=== PATIENT | male | born 1960 | race African-American/Black ===

== ENCOUNTER 2018-10-14 09:56 | Day surgery (SDC) | payer OTHER ==
[~2018-10-14] VITALS: Ht 170.2 cm; Wt 101.6 kg
[~2018-10-14 09:56] MED LIST: HYDROmorphone 2 MG/ML VIAL IV PRN; IV RINGERS,LACTATED 1000ML 1,000 ML IV SCH; LIDOCAINE 1% PF 2 ML VIAL. ID PRN; MORPHINE SULFATE 4 MG/ML VIAL. IV PRN; ONDANSETRON PF 4 MG/2 ML VIAL. IV PRN; PROCHLORPERAZINE 10 MG/2 ML VIAL. IV PRN; ceFAZolin 2GM PREMIX 2 GM/50 ML BAG IV ONE; fentaNYL PF VIAL 100 MCG/2 ML VIAL IV PRN
[2018-10-14] MEDS ORDERED: LISI-130 PO (10:24)
[2018-10-14] MEDS ORDERED: METF500T16 PO (10:24)
[2018-10-14] MEDS ORDERED: ACET500T68 PO (10:24)
[2018-10-14] MEDS ORDERED: AMOX1TAB61 PO (10:24)
[2018-10-14] MEDS ORDERED: XOPENEX HFA15 GM IH (10:24)
[2018-10-14] MEDS ORDERED: GUAI600T47 PO (10:24)
[2018-10-14] MEDS ORDERED: DOCU-109 PO (10:24)
[2018-10-14] MEDS ORDERED: CHLO4TAB20 PO (10:24)
[2018-10-14] MEDS ORDERED: BUPIVAC MPF-EPI 0.5%-1:200000 30 ML VIAL. ONE (10:44)
--- NOTE | 2018-10-14 11:21 | PDOC1 ---
History and Physical Date of Admission Date of Admission DATE: 10/14/18 TIME: 11:16 Identification/Chief Complaint Chief Complaint right inguinal fullness and pain Source Source: Chart review, Patient History of Present Illness History of Present Illness Mr Goodman is a 57 yo male inmate who at age 19 had a left inguinal hernia repair. He now has pain and fullness in the right groin. He is brought for repair Past Medical History Cardiovascular: No pertinent hx Pulmonary: COPD Renal/: No pertinent hx Endocrine: Diabetes Past Surgical History Past Surgical History: Hernia Repair Family History Family History: No Significant Social History Smoke: No ALCOHOL: none Drugs: None Current Medications Current Medications Current Medications Ondansetron HCl (Zofran) 4 mg PRN Q6HRS PRN IV NAUSEA/VOMITING; Start at 07:00; Stop 10/15/18 at 06:59 Fentanyl Citrate (Fentanyl 2ml Vial) 25 mcg PRN Q5MIN PRN IV MILD PAIN; Start 10/14/18 at 07:00; Stop 10/15/18 at 06:59 Fentanyl Citrate (Fentanyl 2ml Vial) 50 mcg PRN Q5MIN PRN IV MODERATE TO SEVERE PAIN; Start 10/14/18 at 07:00; Stop 10/15/18 at 06:59 Morphine Sulfate (Morphine Sulfate) 1 mg PRN Q10MIN PRN IV SEVERE PAIN; Start 10/14/18 at 07:00; Stop 10/15/18 at 06:59 Ringer's Solution 1,000 ml @ 30 mls/hr Q24H IV Last administered on at 10:43; Start 10/14/18 at 07:00; Stop 10/14/18 at 18:59 Lidocaine HCl (Xylocaine-Mpf 1% 2ml Vial) 2 ml PRN 1X PRN ID PRIOR TO IV START ; Start 10/14/18 at 07:00; Stop 10/15/18 at 06:59 Hydromorphone HCl (Dilaudid) 0.5 mg PRN Q10MIN PRN IV SEV PAIN, Second choice; Start 10/14/18 at 07:00; Stop 10/15/18 at 06:59 Prochlorperazine Edisylate (Compazine) 5 mg PACU PRN PRN IV NAUSEA, MRX1; Start 10/14/18 at 07:00; Stop 10/15/18 at 06:59 Cefazolin Sodium/ Dextrose 50 ml @ 100 mls/hr 1X PREOP PRN IV PRIOR TO PROCEDURE; Start 10/14/18 at 06:00; Stop 10/14/18 at 18:00 Bupivacaine HCl/ Epinephrine Bitart (Sensorcain-Mpf Epi 0.5%-1:864376) 30 ml STK -MED ONCE .ROUTE ; Start 10/14/18 at 10:44; Stop 10/14/18 at 10:46; Status DC Active Scripts Active Reported Xopenex Hfa (Levalbuterol Tartrate) 15 Gm Hfa.aer.ad 45 Gm IH BID Metformin Hcl 500 Mg Tablet 500 Mg PO BIDWMEALS Lisinopril 40 Mg Tablet 1 Tab PO DAILY Mucinex (Guaifenesin) 600 Mg Tablet.er 400 Mg PO BID Colace (Docusate Sodium) 100 Mg Capsule 1 Cap PO BID Chlorpheniramine Maleate 4 Mg Tablet 4 Mg PO BID Augmentin 875-125 Tablet (Amoxicillin/Potassium Clav) 1 Each Tablet 1 Tab PO BID Acetaminophen 500 Mg Tablet 1 Tab PO BID Allergies Allergies: Coded Allergies: No Known Drug Allergies (Unverified , 10/14/18) ROS Review of System negative with exception of present complaint Physical Exam General: Alert, Cooperative, No acute distress HEENT: Atraumatic Lungs: Normal air movement Heart: RRR Abdomen: Soft, Other (obese, well healed scar left groin, fullness present in the right groin) Vitals Vitals Vital Signs Date Time Temp Pulse Resp B/P (MAP) Pulse Ox O2 Delivery O2 Flow Rate FiO2 10/14/18 10:32 97.9 97 20 157/107 94 Nasal Cannula 3 97.9 VTE Prophylaxis Ordered VTE Prophylaxis Devices: Yes VTE Pharmacological Prophylaxi: No Assessment/Plan Assessment/Plan right inguinal hernia explained risks of repair including but not limited to bleeding, infection, recurrence, chronic pain he will proceed GILMAR LINN MD Oct 14, 2018 11:20
[2018-10-14] MEDS ORDERED: fentaNYL PF VIAL 100 MCG/2 ML VIAL ONE ×2 (11:36→13:10)
[2018-10-14] MEDS ORDERED: DEXAMETHASONE SOD PHOS 20 MG/5 ML VIAL. ONE (11:36)
[2018-10-14] MEDS ORDERED: ONDANSETRON PF 4 MG/2 ML VIAL. ONE (11:36)
[2018-10-14] MEDS ORDERED: PROPOFOL 20 ML IV ONE (11:36)
[2018-10-14] MEDS ORDERED: LIDOCAINE 2% PF Vial for OR 5 ML VIAL. ONE (11:36)
[2018-10-14] MEDS ORDERED: SEVOFLURANE 61 TO 120 MINUTES. IH ONE (12:32)
--- NOTE | 2018-10-14 13:08 | PDOC ---
BRIEF OPERATIVE NOTE Date: Oct 14, 2018 Pre-Op Diagnosis right inguinal hernia Post-Op Diagnosis same, direct Procedure Performed repair with mesh Surgeon Brayan Anesthesia Type: General (LMA) Blood Loss 10cc IV Fluid 600cc Specimens Obtained none Findings direct hernia, no indirect sack seen Complications none Operative Note WK # [id number] GILMAR LINN MD Oct 14, 2018 13:08
[2018-10-14] MEDS ORDERED: oxyCODONE/APAP 10/325 1 TAB TABLET PO ONE (13:30)
[2018-10-14 13:52] VITALS: BP 145/85
--- NOTE | 2018-10-14 13:55 | DISCH ---
DISCHARGE INSTRUCTIONS Condition on Discharge Condition on Discharge: Stable Activity After Discharge Activity Instructions for Disc: Resume previous activity, Activity as tolerated Lifting Instructions after Dis: No heavy lifting Driving Instructions after Dis: Do not drive Diet after Discharge Diet after Discharge: Regular Wound Incision Care Wound/Incision Care: Ice to area for comfort Other wound/incision instructi: february shower Sunday Follow-Up Follow up with: Brayan two weeks GILMAR LINN MD Oct 14, 2018 13:55
--- NOTE | 2018-10-14 17:52 | OP ---
DATE OF SURGERY: 10/14/2018 PREOPERATIVE DIAGNOSIS: Right inguinal hernia. POSTOPERATIVE DIAGNOSIS: Right inguinal hernia, direct. PROCEDURE: Repair with mesh. SURGEON: Josh Linn MD ANESTHESIA: General LMA. ESTIMATED BLOOD LOSS: 10 mL. INTRAVENOUS FLUIDS: 600 mL. INDICATIONS: The patient is a 57-year-old with a right inguinal hernia, brought in for repair. DESCRIPTION OF PROCEDURE: The patient brought to the Operating suite, given general LMA and the right groin prepped and draped in usual sterile fashion. A 0.5% Marcaine with epinephrine was used to infiltrate the skin and subcutaneous tissue along the incision line. Incision made and dissection carried down to the external oblique fascia. Bleeders were cauterized or tied as identified. The fascia was opened in the direction of its fibers, extended through the external ring. The cord was stripped off the pubis. Juanito drain placed around it and dissection carried back to the internal ring where no evidence of an indirect hernia sac was identified. There was an obvious defect in the floor of the canal creating the direct hernia. This was mobilized circumferentially. The neck was scored with cautery, was then reduced and held in reduction with a plug of Phasix mesh, tacked with 2-0 PDS, taking care to avoid injury to adjacent vessels. A keyhole patch was then fashioned and placed over the repair, the slit closed with a single 2-0 PDS stitch. Area checked for hemostasis and when present and a correct sponge count was obtained, the cord was returned to its normal anatomical position. External oblique fascia closed over in a running fashion with 3-0 Vicryl. The subcutaneous tissue approximated with 3-0 Vicryl. Skin closed with a subcuticular 4-0 Monocryl. Steri-Strips and sterile dressing applied. Prior to emergence from anesthesia, digital rectal exam failed to reveal evidence of prostatic enlargement or nodularity. The patient was awakened from his anesthetic and taken to the recovery room in satisfactory condition. JOSH LINN MD DR: PATRICE/ja JOB#: [id number] / [id number]
== END 2018-10-14 14:15 | disposition home or self-care (01) ==
LOC: SURG 09:56 → EEVIPCON 12:00 → SURG 14:15
PROVIDERS: ATTEND Surgery
DX: K40.90 Unilateral inguinal hernia, without obstruction or gangrene, not specified as recurrent (principal); J44.9 Chronic obstructive pulmonary disease, unspecified; E11.9 Type 2 diabetes mellitus without complications; Z98.890 Other specified postprocedural states; Z79.899 Other long term (current) drug therapy; Z79.84 Long term (current) use of oral hypoglycemic drugs
CPT/HCPCS: 49505; 82962; C1781; J0690; J1100; J2001; J2405; J2704; J3010; J3490; J7120